=== PATIENT | male | born 1985 | race Two or more races ===

== ENCOUNTER 2019-11-13 22:10 | Emergency (ER) | payer SELFPAY ==
[~2019-11-13] VITALS: Ht 172.7 cm; Wt 79.6 kg
[2019-11-13] MEDS ORDERED: IBUPROFEN 600MG TABLET PO ONE (23:30)
[2019-11-14 00:44] LABS: BASOPHILS % 0.5 % (0.0-2.0); EOSINOPHILS % 1.4 % (0.0-5.0); HEMOGLOBIN. 15.5 g/dL (14.0-18.0); LYMPHOCYTES % 34.8 % (20.0-50.0); MEAN CORPUSCULAR HEMOGLOBIN 28.9 pg (28.0-32.0); MEAN CORPUSCULAR VOLUME 84.2 fL (80.0-94.0); MEAN PLATELET VOLUME 7.7 fl (7.4-10.4); MONOCYTES % 8.7 % (2.0-8.0); NEUTROPHILS % 54.6 % (40.0-76.0); PLATELET 249 x1000/uL (130-400); RED BLOOD CELL COUNT 5.34 mill/uL (4.7-6.1); RED CELL DISTRIBUTION WIDTH 14.1 % (11.6-14.6)
[2019-11-14 00:49] LABS: CHLORIDE 104 mEq/L (98-107)
[2019-11-14 00:58] LABS: CREATINE KINASE 187 IU/L (39-308)
[2019-11-14 01:35] VITALS: BP 133/87
== END 2019-11-14 01:39 | disposition home or self-care (01) ==
LOC: ER 22:10
DX: J06.9 Acute upper respiratory infection, unspecified (principal)
CPT/HCPCS: 36415; 71045; 80053; 82550; 83880; 84484; 85025; 85379; 87070; 87430; 87804; 93005; 99285

== ENCOUNTER 2021-06-08 19:15 | Emergency (ER) | payer MEDICAID, OTHER ==
[~2021-06-08] VITALS: Ht 172.7 cm; Wt 82.0 kg
[2021-06-08 19:36] VITALS: BP 139/98
[2021-06-08] MEDS ORDERED: FAMOTIDINE 20MG TABLET PO ONE (22:30)
[2021-06-08 22:57] LABS: BASOPHILS % 0.2 % (0.0-2.0); EOSINOPHILS % 2.4 % (0.0-5.0); HEMATOCRIT. 44.6 % (42.0-52.0); HEMOGLOBIN. 15.1 g/dL (14.0-18.0); LYMPHOCYTES % 34.3 % (20.0-50.0); MEAN CORPUSCULAR HEMOGLOBIN 28.8 pg (28.0-32.0); MEAN PLATELET VOLUME 8.4 fl (7.4-10.4); MONOCYTES % 8.3 % (2.0-8.0); NEUTROPHILS % 54.8 % (40.0-76.0); PLATELET 274 x1000/uL (130-400); RED BLOOD CELL COUNT 5.24 mill/uL (4.7-6.1); RED CELL DISTRIBUTION WIDTH 13.5 % (11.6-14.6)
[2021-06-08 23:04] LABS: CHLORIDE 105 mEq/L (98-107)
[2021-06-08 23:13] LABS: PROTHROMBIN TIME 10.7 sec (9.6-11.0)
[2021-06-08 23:24] LABS: CLARITY URINE CLEAR (CLEAR); COLOR URINE YELLOW (YELLOW); KETONES URINE NEGATIVE (NEGATIVE); LEUKOCYTE ESTERASE URINE NEGATIVE (NEGATIVE); NITRITE URINE NEGATIVE (NEGATIVE); OCCULT BLOOD URINE NEGATIVE (NEGATIVE); PH URINE 7.5 (4.5-8.0); PROTEIN URINE NEGATIVE (NEGATIVE); SPECIFIC GRAVITY URINE 1.018 (1.005-1.030); UROBILINOGEN URINE 0.2 E.U./dL (0.2-1.0)
[2021-06-08] MEDS ORDERED: FAMO-135 MT (23:51)
[2021-06-08] MEDS ORDERED: VITS42.53 TP (23:58)
== END 2021-06-09 00:45 | disposition home or self-care (01) ==
LOC: ER 19:15
DX: K21.9 Gastro-esophageal reflux disease without esophagitis (principal); M94.0 Chondrocostal junction syndrome [Tietze]; M25.561 Pain in right knee; M25.861 Other specified joint disorders, right knee; R21 Rash and other nonspecific skin eruption
CPT/HCPCS: 36415; 73560; 80053; 81003; 82941; 85025; 93005; 99285